=== PATIENT | female | born 1965 | race Caucasian/White ===

== ENCOUNTER → 2023-09-12 10:10 | Outpatient (REF) | payer BC, SELFPAY | LOC: WDC 10:10 | PROVIDERS: ATTENDING PHYSICIAN Obstetrics & Gynecology; FAMILY PHYSICIAN Family Medicine | DX: Z12.31 Encounter for screening mammogram for malignant neoplasm of breast (principal) | CPT/HCPCS: 77063; 77067 ==

== ENCOUNTER → 2024-09-13 08:04 | Outpatient (REF) | payer BC, SELFPAY | LOC: WDC 08:04 | PROVIDERS: ATTENDING PHYSICIAN Obstetrics & Gynecology; FAMILY PHYSICIAN Family Medicine | DX: Z12.31 Encounter for screening mammogram for malignant neoplasm of breast (principal) | CPT/HCPCS: 77063; 77067 ==

== ENCOUNTER 2024-09-27 06:20 | Day surgery (SDC) | payer BC, SELFPAY | END 2024-09-27 09:20 | disposition home or self-care (01) | LOC: GI 06:20 | PROVIDERS: ATTENDING PHYSICIAN Internal Medicine | DX: Z12.11 Encounter for screening for malignant neoplasm of colon (principal); K57.30 Diverticulosis of large intestine without perforation or abscess without bleeding; K64.8 Other hemorrhoids; K62.1 Rectal polyp | CPT/HCPCS: 45385; 88305 ==

== ENCOUNTER → 2024-12-29 13:21 | Outpatient (REF) | payer BC, SELFPAY | LOC: PAVMRI 13:21 | PROVIDERS: ATTENDING PHYSICIAN Psychiatry & Neurology Neurology; FAMILY PHYSICIAN Family Medicine | DX: M54.16 Radiculopathy, lumbar region (principal); M48.062 Spinal stenosis, lumbar region with neurogenic claudication | CPT/HCPCS: 72158; A9575 ==